=== PATIENT | male | born 1970 | race Caucasian/White ===

== ENCOUNTER 2024-02-04 12:54 | Emergency (ER) | payer OTHER, SELFPAY ==
[2024-02-04 12:56] VITALS: BP 170/96
[2024-02-04 13:05] VITALS: BP 174/90
--- NOTE | 2024-02-04 13:22 | ED.GENMED ---
History of Present Illness
General
Chief Complaint: Abdominal Pain
Source: patient
Exam Limitations: none
Time Seen by Provider: 02/04/24 13:00
Nursing documentation reviewed up to this point in time: agreed with
Travel History
Have you had any contact with someone who has COVID-19?: No
Do you have any symptoms of coronavirus? Fever > 100 degrees, chills, cough, shortness of breath, sore throat, loss of taste or smell, muscle aches, or headache?: No
History of Present Illness
History of Present Illness:
Patient is a 54 yr old male who presents to the ER for evaluation. Patient ports on Tuesday he started with abdominal pain after drinking orange juice. He complains of burning in his upper abdominal region. He took Pepto-Bismol has been taking
Pepto-Bismol since. He continues to complain of upper abdominal pain. He does feel nauseous has not vomited. He denies any fever or chills. He has noticed dark stool which is what prompted him to come to the ER. He has no prior history of
reflux or GI bleed. Patient has had a normal colonoscopy 2 years ago.
Patient does not smoke + social alcohol.
Past History
Past History
ED Past Medical History: None
ED Past Surgical History: Appendectomy; Negative Cardiac
Social History
Tobacco: Non-smoker
Alcohol: None
Drug: None
Personal:
Living: with family
Employment: Employed
Family History
Family History: Other (Father with cardiomyopathy)
Review of Systems
Review of Systems
Allergies reviewed?: Yes
All Other Systems: ROS reviewed and negative except as documented in HPI and ROS
Constitutional: Denies fever, fatigue or chills
Respiratory: Reports no symptoms
Cardiac: Reports no symptoms
ABD/GI: Reports abdominal pain, nausea and black stools; Denies vomiting or diarrhea
: Reports no symptoms
Musculoskeletal: Reports no symptoms
Skin: Reports no symptoms
Neurological: Reports dizzy (Dizzy/lightheaded)
Psychiatric: Reports no symptoms
Phy Exam
General Physical Exam
General Presentation: no apparent distress
General age: appears stated age
General Skin: warm and dry
General Habitus: normal
General Mental: alert
General Hydration: appears well hydrated
Cardiovascular Exam
Cardiovascular Exam: regular rate/rhythm, no murmur and normal peripheral pulses
Pulmonary Exam
Pulmonary Exam: lungs clear and no respiratory distress
Gastrointestinal Exam
Gastrointestinal Exam: non tender and soft
Neurological Exam
Neurological Exam: alert and oriented x3
Musculoskeletal Exam
Musculoskeletal Exam: full ROM
Skin Exam
Skin Exam: normal color and warm/dry
Psychiatric Exam
Psychiatric Exam: normal mood/affect
Course
Orders/Labs/Results
Orders:
Orders
02/04/24 13:04
Complete Blood Count/With Diff Urgent
Comprehensive Metabolic Panel Urgent
Lipase Urgent
Comment: ADD ON
02/04/24 13:13
Add On- LAB Urgent
Tests Added?: Lipase
02/04/24 13:22
0.9% Sodium Chloride 1000 ml [Nss] 1,000 ml IV BOLUS
Ondansetron Injectable [Zofran] 4 mg IV NOW STA
02/04/24 13:26
Famotidine [Pepcid] 20 mg IV NOW STA
02/04/24 14:34
US Abdomen Complete/Upper Urgent
Comment:
Reason For Exam: upper abd pain
Abnormal Lab Results
02/04/24
13:04
Absolute Monos (auto) 0.7 H 10^3/uL
(0.1-0.6)
Monocytes % 9.8 H %
(1.7-9.3)
Eosinophils % 10.3 H %
(0-6)
02/04/24 13:04
02/04/24 13:04
Vital Signs
Initial and Last Documented VS:
Initial Vital Signs
Temp Pulse Resp BP Pulse Ox
97.9 F 78 16 170/96 99
02/04/24 12:56 02/04/24 12:56 02/04/24 12:56 02/04/24 12:56 02/04/24 12:56
Last Documented Vital Signs
Temp Pulse Resp BP Pulse Ox
97.9 F 67 15 129/76 98
02/04/24 12:56 02/04/24 17:15 02/04/24 17:00 02/04/24 17:00 02/04/24 17:15
MDM/Problems Addressed
Differential Diagnosis Includes:
Not limited to : GERD, gastritis less likely biliary colic
MDM/Problems Addressed:
Patient is a 54-year-old male who presented with upper abdominal pain burning discomfort for the past several days. He has been taking Pepto-Bismol and then noticed his stool was black. He had a normal colonoscopy 2 years ago. He presents awake
alert no acute distress, patient stable labs unremarkable. Patient given IV Pepcid here no acute distress will check ultrasound if negative will plan for discharge home with likely gastritis on PPI with outpatient GI follow-up. Care of patient
this time transferred to [facility] pending
*Critical Care Note
Total Time (30-74mins, 75-104mins- exclusive of procedures): Not Applicable
ED Attending Note
-
Portions of this chart may have been created with voice recognition software.� Occasional wrong word or��sound alike� substitutions may have occurred due to the inherent limitations of voice recognition software.
Discharge Plan
Departure
Patient Disposition: Home (Routine Discharge)
Date of Disposition: 02/04/24
Time of Disposition: 17:19
Patient with high blood pressure during this ER visit?: Yes
Condition: Fair
Covid-19: Not Applicable
Discharge Problem:
Acute upper abdominal pain
Instructions: Abdominal Pain, BLOOD PRESSURE
Prescriptions:
New
pantoprazole [Protonix] 40 mg tablet,delayed release (DR/EC)
40 mg PO DAILY Qty: 14 0RF
No Action
ondansetron 4 MG tablet,disintegrating
4 mg PO TIDPRN PRN (Reason: nausea/vomiting) Qty: 10 0RF
enalapril maleate 5 MG tablet
5 mg PO DAILY Qty: 30 0RF
prednisone 50 mg tablet
50 mg PO DAILY Qty: 5 0RF
fluticasone propionate [Flonase Allergy Relief] 50 mcg/actuation spray,suspension
1 spray intranasal BID Qty: 16 0RF
amoxicillin-pot clavulanate 875-125 mg tablet
1 tab PO BID 7 Days Qty: 14 0RF
Referrals:
Lesli Oh MD [Active] -
NONE,* [Family Provider] -
Activity Restrictions/Additional Instructions:
As discussed a prescription was sent to your pharmacy for Protonix. Take as directed. Avoid caffeine alcohol spicy foods fatty foods. Follow-up close with your family doctor the next 2 days for reevaluation as well as GI return if any worsening
of symptoms.
Interventions
Interventions:
*Risk Screen - Suicide Last Done: 02/04/24 12:56
*General Assessment Last Done: 02/04/24 12:56
*Neglect/Abuse Screening Last Done: 02/04/24 12:56
*Nursing Disposition Last Done: 02/04/24 17:43
[facility] Assessment Last Done: 02/04/24 13:56
Discharge Date and Time
Discharge Date/Time: 02/04/24 17:43
Print Language: ARABIC
[2024-02-04 13:25] LABS: % Basophils 1.6 % (0-2); % Eosinophils 10.3 % (0-6); % Immature Granulocytes 0.3 % (0-0.5); % Lymphocytes 35.7 % (20.5-51.1); % Monocytes 9.8 % (1.7-9.3); % Neutrophils 42.3 % (42.2-75.2); Absolute Basophils 0.1 10^3/uL (0-0.2); Absolute Eosinophils 0.7 10^3/uL (0-0.7); Absolute Lymphocytes 2.4 10^3/uL (1.2-3.4); Absolute Monocytes 0.7 10^3/uL (0.1-0.6); Absolute Neutrophils 2.8 10^3/uL (1.4-6.5); Hemoglobin 15.4 g/dL (13.0-18.0); Mean Corp Hgb Conc. 34.2 g/dL (33.0-37.0); Mean Corpuscular Hgb 30.1 pg (27.0-31.0); Mean Corpuscular Volume 87.9 fL (80.0-94.0); Mean Platelet Volume 9.6 fL (7.4-10.4); Nucleated Red Blood Cells % 0 % (-); Platelet Count 288 10^3/uL (130-400); Red Blood Cell Count 5.12 10^6/uL (4.70-6.10); Red Cell Dist. Width 12.5 % (11.5-14.5); White Blood Cell Count 6.7 10^3/uL (4.8-10.8)
[2024-02-04 13:40] LABS: ALT (SGPT) 18 U/L (0-50); AST (SGOT) 26 U/L (17-59); Albumin 4.5 g/dl (3.5-5.0); Alkaline Phosphatase 70 U/L (38-126); Blood Urea Nitrogen 13 mg/dl (9-20); Calcium 9.5 mg/dl (8.4-10.2); Carbon Dioxide 25 mmol/L (22-30); Chloride 104 mmol/L (98-107); Glucose 88 mg/dl (70-99); Lipase 179 U/L (23-300); Potassium 3.7 mmol/L (3.5-5.1); Sodium 135 mmol/L (135-145); Total Bilirubin 0.5 mg/dl (0.2-1.3); Total Protein 7.6 g/dl (6.3-8.2); eGFR > 60.00
[2024-02-04] MEDS: ZOFRAN 4 MG IV (13:41)
[2024-02-04] MEDS: PEPCID 20 MG IV (13:42)
[2024-02-04] MEDS: NSS 1000 IV (13:43)
[2024-02-04 14:00] VITALS: BP 138/78
[2024-02-04 16:54] VITALS: BP 134/75
[2024-02-04 17:00] VITALS: BP 129/76
== END 2024-02-04 17:43 | disposition home or self-care (01) ==
LOC: EMR 12:54
PROVIDERS: Nurse Practitioner; EMERGENCY PHYSICIAN Emergency Medicine
DX: R10.10 Upper abdominal pain, unspecified (principal); R03.0 Elevated blood-pressure reading, without diagnosis of hypertension
CPT/HCPCS: 99284; 96374; 96375; 96361; 76700; 80053; 83690; 85025